=== PATIENT | female | born 1945 | race African-American/Black ===

== ENCOUNTER 2020-11-23 09:28 | Inpatient (IN) | payer BC ==
[~2020-11-23] VITALS: Ht 160 cm; Wt 84.8 kg
[2020-11-23 11:12] LABS: BASOPHILS % 0.5 % (0.0-2.0); HEMATOCRIT. 38.9 % (36.0-48.0); HEMOGLOBIN. 12.3 g/dL (12.0-16.0); LYMPHOCYTES % 18.7 % (20.0-50.0); MEAN CORPUSCULAR HEMOGLOBIN 22.6 pg (28.0-32.0); MEAN CORPUSCULAR VOLUME 71.6 fL (81.0-99.0); MEAN PLATELET VOLUME 9.1 fl (7.4-10.4); MONOCYTES % 8.1 % (2.0-8.0); NEUTROPHILS % 72.7 % (40.0-76.0); PLATELET 163 x1000/uL (130-400); RED BLOOD CELL COUNT 5.44 mill/uL (4.2-5.4); RED CELL DISTRIBUTION WIDTH 15.3 % (11.6-14.6)
[2020-11-23 11:19] LABS: CHLORIDE 101 mEq/L (98-107)
[2020-11-23] MEDS ORDERED: DEXAMETHASONE 10 MG/ML VIAL IV NR (19:30)
[2020-11-23] MEDS ORDERED: ENOXAPARIN 80MG/0.8ML SYR SUBCUT NR (19:30)
[2020-11-23] MEDS ORDERED: AZITHROMYCIN 500 MG in DEXT 5% WATER 250 ML IV SCH (20:00)
[2020-11-23] MEDS ORDERED: ONDANSETRON HCL 4MG/2ML INJ IV PRN (21:15)
[2020-11-23 21:46] LABS: BG BASE EXCESS 1.2 mmol/L (-2.0-2.0); BG CARBOXYHEMOGLOBIN 0.3 % (0.5-1.5); BG DEOXYHEMOGLOBIN 4.4 % (0.0-5.0); BG FRACTION INSPIRED OXYGEN 36; BG HCO3 ACT 25.3 mmol/L (22.0-26.0); BG METHEMOGLOBIN 0.2 % (0.0-1.5); BG OXYGEN SATURATION 95.6 % (92.0-98.5); BG OXYHEMOGLOBIN 95.1 % (94.0-97.0); BG PCO2 38.7 mmHg (35.0-45.0); BG PH 7.434 (7.350-7.450); BG SAMPLE SITE RIGHT RADIAL; BG TOTAL HEMOGLOBIN 12.8 g/dL (12.0-18.0); BG VENT MODE NASAL CANNULA
[2020-11-24 11:00] VITALS: BP 126/69
[2020-11-24 11:17] LABS: BG BASE EXCESS 2.4 mmol/L (-2.0-2.0); BG CARBOXYHEMOGLOBIN 0.1 % (0.5-1.5); BG DEOXYHEMOGLOBIN 4.2 % (0.0-5.0); BG FRACTION INSPIRED OXYGEN 44; BG METHEMOGLOBIN 0.3 % (0.0-1.5); BG OXYGEN SATURATION 95.8 % (92.0-98.5); BG OXYHEMOGLOBIN 95.4 % (94.0-97.0); BG PCO2 36.8 mmHg (35.0-45.0); BG PH 7.467 (7.350-7.450); BG PO2 75.1 mmHg (75.0-100.0); BG SAMPLE SITE RIGHT RADIAL; BG TOTAL HEMOGLOBIN 13.1 g/dL (12.0-18.0); BG VENT MODE NASAL CANNULA
[2020-11-24 12:00] VITALS: BP 126/86
[2020-11-24] MEDS ORDERED: GABA-532 PO (12:31)
[2020-11-24] MEDS ORDERED: LOSA1TAB34 MT (12:51)
[2020-11-24 16:00] VITALS: BP 130/70
[2020-11-24] MEDS ORDERED: DEXAMETHASONE 6MG TABLET PO NR (18:30)
[2020-11-24 20:00] VITALS: BP 144/78
[2020-11-24 20:49] LABS: BG BASE EXCESS 1.8 mmol/L (-2.0-2.0); BG CARBOXYHEMOGLOBIN 0.4 % (0.5-1.5); BG DEOXYHEMOGLOBIN 11.5 % (0.0-5.0); BG FRACTION INSPIRED OXYGEN 21; BG HCO3 ACT 25.8 mmol/L (22.0-26.0); BG METHEMOGLOBIN 0.3 % (0.0-1.5); BG OXYGEN SATURATION 88.4 % (92.0-98.5); BG OXYHEMOGLOBIN 87.8 % (94.0-97.0); BG PCO2 38.3 mmHg (35.0-45.0); BG PH 7.446 (7.350-7.450); BG SAMPLE SITE RIGHT RADIAL; BG TOTAL HEMOGLOBIN 14.4 g/dL (12.0-18.0); BG VENT MODE ROOM AIR
[2020-11-24] MEDS: GABAPENTIN 300MG CAPSULE PO SCH (21:09)
[2020-11-24] MEDS: ENOXAPARIN 40MG/0.4ML SYR SUBCUT SCH (21:10)
[2020-11-25] VITALS: BP 142/67
[2020-11-25 04:00] VITALS: BP 127/80
[2020-11-25] MEDS: GABAPENTIN 300MG CAPSULE PO SCH ×3 (05:03→20:49)
[2020-11-25] MEDS ORDERED: DEXAMETHASONE 6MG TABLET PO NR (11:15)
[2020-11-25] MEDS: DOCUSATE SODIUM SUGAR FREE 100MG/10ML UDC NG SCH (17:15)
[2020-11-25] MEDS: FAMOTIDINE 20MG/2ML VIAL IV SCH (17:16)
[2020-11-25] MEDS: ENOXAPARIN 40MG/0.4ML SYR SUBCUT SCH (20:48)
[2020-11-26] MEDS: GABAPENTIN 300MG CAPSULE PO SCH ×3 (07:27→21:07)
[2020-11-26] MEDS: DOCUSATE SODIUM SUGAR FREE 100MG/10ML UDC NG SCH (09:35)
[2020-11-26] MEDS: FAMOTIDINE 20MG/2ML VIAL IV SCH (09:35)
[2020-11-26 12:00] VITALS: BP 119/79
[2020-11-26] MEDS: ACETAMINOPHEN 325MG TABLET PO PRN (13:36)
[2020-11-26] MEDS ORDERED: ACETAMINOPHEN 325MG TABLET PO NR (15:15)
[2020-11-26 16:00] VITALS: BP 123/71
[2020-11-26 20:00] VITALS: BP 101/57
[2020-11-26] MEDS: ENOXAPARIN 40MG/0.4ML SYR SUBCUT SCH (21:07)
[2020-11-27] VITALS: BP 123/65
[2020-11-27 04:00] VITALS: BP 152/69
[2020-11-27] MEDS: GABAPENTIN 300MG CAPSULE PO SCH ×3 (06:42→21:41)
[2020-11-27 08:00] VITALS: BP 136/70
[2020-11-27] MEDS: DOCUSATE SODIUM SUGAR FREE 100MG/10ML UDC NG SCH (08:30)
[2020-11-27] MEDS: FAMOTIDINE 20MG/2ML VIAL IV SCH (08:31)
[2020-11-27] MEDS: ACETAMINOPHEN 325MG TABLET PO PRN (11:14)
[2020-11-27 12:00] VITALS: BP 164/79
[2020-11-27] MEDS: CLONIDINE 0.1MG TABLET PO PRN (13:20)
[2020-11-27 15:41] VITALS: BP 122/81
[2020-11-27 20:41] VITALS: BP 113/49
[2020-11-27] MEDS: ENOXAPARIN 40MG/0.4ML SYR SUBCUT SCH (21:41)
[2020-11-28] MEDS: GABAPENTIN 300MG CAPSULE PO SCH ×3 (06:12→22:26)
[2020-11-28 08:17] VITALS: BP 100/69
[2020-11-28] MEDS: DOCUSATE SODIUM SUGAR FREE 100MG/10ML UDC NG SCH ×2 (09:00→09:44)
[2020-11-28] MEDS: FAMOTIDINE 20MG/2ML VIAL IV SCH (09:44)
[2020-11-28 19:47] LABS: BASOPHILS % 0.7 % (0.0-2.0); EOSINOPHILS % 0.8 % (0.0-5.0); HEMATOCRIT. 36.9 % (36.0-48.0); HEMOGLOBIN. 11.6 g/dL (12.0-16.0); LYMPHOCYTES % 22.1 % (20.0-50.0); MEAN CORPUSCULAR HEMOGLOBIN 22.6 pg (28.0-32.0); MEAN CORPUSCULAR VOLUME 71.4 fL (81.0-99.0); MEAN PLATELET VOLUME 8.8 fl (7.4-10.4); MONOCYTES % 5.8 % (2.0-8.0); NEUTROPHILS % 70.6 % (40.0-76.0); PLATELET 300 x1000/uL (130-400); RED BLOOD CELL COUNT 5.16 mill/uL (4.2-5.4); RED CELL DISTRIBUTION WIDTH 14.9 % (11.6-14.6)
[2020-11-28 20:00] VITALS: BP 141/79
[2020-11-28 20:03] LABS: CHLORIDE 98 mEq/L (98-107)
[2020-11-28] MEDS ORDERED: CEFTRIAXONE 1 G PREMIX 50 ML IV SCH (21:15)
[2020-11-28] MEDS ORDERED: DEXAMETHASONE 6MG TABLET PO NR (21:30)
[2020-11-28] MEDS: ACETAMINOPHEN 325MG TABLET PO PRN (22:26)
[2020-11-28] MEDS: ENOXAPARIN 40MG/0.4ML SYR SUBCUT SCH (22:28)
[2020-11-29 00:20] VITALS: BP 119/72
[2020-11-29] MEDS: CEFTRIAXONE 1,000 MG in DEXTROSE 5% WATER 50 ML IV SCH ×2 (01:01→22:09)
[2020-11-29] MEDS: AZITHROMYCIN 500 MG in DEXT 5% WATER 250 ML IV SCH ×2 (02:14→22:10)
[2020-11-29 04:00] VITALS: BP 117/63
[2020-11-29] MEDS: GABAPENTIN 300MG CAPSULE PO SCH ×3 (06:46→22:10)
[2020-11-29] MEDS: ACETAMINOPHEN 325MG TABLET PO PRN (06:58)
[2020-11-29 08:00] VITALS: BP 114/63
[2020-11-29] MEDS: ZINC SULFATE 220 MG ( 50 ) CAPSULE PO SCH (09:32)
[2020-11-29] MEDS: FAMOTIDINE 20MG/2ML VIAL IV SCH (09:33)
[2020-11-29] MEDS: ASCORBIC ACID 500 MG TABLET PO SCH ×2 (09:33→21:00)
[2020-11-29] MEDS: DOCUSATE SODIUM SUGAR FREE 100MG/10ML UDC NG SCH (09:33)
[2020-11-29] MEDS: DEXAMETHASONE 6MG TABLET PO SCH (09:33)
[2020-11-29 11:53] VITALS: BP 121/74
[2020-11-29 15:03] VITALS: BP 123/63
[2020-11-29 20:00] VITALS: BP 125/72
[2020-11-29] MEDS: ENOXAPARIN 40MG/0.4ML SYR SUBCUT SCH (22:10)
[2020-11-30] VITALS: BP 129/80
[2020-11-30 04:00] VITALS: BP 123/64
[2020-11-30] MEDS: GABAPENTIN 300MG CAPSULE PO SCH ×3 (05:03→21:21)
[2020-11-30 08:00] VITALS: BP 140/65
[2020-11-30] MEDS: DOCUSATE SODIUM SUGAR FREE 100MG/10ML UDC NG SCH (09:00)
[2020-11-30] MEDS: DEXAMETHASONE 6MG TABLET PO SCH (09:21)
[2020-11-30] MEDS: FAMOTIDINE 20MG/2ML VIAL IV SCH (09:21)
[2020-11-30] MEDS: ASCORBIC ACID 500 MG TABLET PO SCH ×2 (09:21→21:21)
[2020-11-30] MEDS: ZINC SULFATE 220 MG ( 50 ) CAPSULE PO SCH (09:22)
[2020-11-30] MEDS: ACETAMINOPHEN 325MG TABLET PO PRN (15:39)
[2020-11-30 16:00] VITALS: BP 102/54
[2020-11-30 20:00] VITALS: BP 139/80
[2020-11-30] MEDS: CEFTRIAXONE 1,000 MG in DEXTROSE 5% WATER 50 ML IV SCH (20:12)
[2020-11-30] MEDS: ENOXAPARIN 40MG/0.4ML SYR SUBCUT SCH (21:21)
[2020-11-30] MEDS: AZITHROMYCIN 500 MG in DEXT 5% WATER 250 ML IV SCH (21:21)
[2020-12-01] VITALS: BP 128/60
[2020-12-01 04:00] VITALS: BP 141/75
[2020-12-01] MEDS: GABAPENTIN 300MG CAPSULE PO SCH ×3 (05:44→21:17)
[2020-12-01 08:00] VITALS: BP 132/70
[2020-12-01] MEDS: DOCUSATE SODIUM SUGAR FREE 100MG/10ML UDC NG SCH (09:00)
[2020-12-01] MEDS: ZINC SULFATE 220 MG ( 50 ) CAPSULE PO SCH (09:02)
[2020-12-01] MEDS: DEXAMETHASONE 6MG TABLET PO SCH (09:02)
[2020-12-01] MEDS: ASCORBIC ACID 500 MG TABLET PO SCH ×2 (09:03→20:18)
[2020-12-01] MEDS: FAMOTIDINE 20MG/2ML VIAL IV SCH (09:03)
[2020-12-01 12:00] VITALS: BP 131/67
[2020-12-01] MEDS: CEFTRIAXONE 1,000 MG in DEXTROSE 5% WATER 50 ML IV SCH (20:18)
[2020-12-01] MEDS: ENOXAPARIN 40MG/0.4ML SYR SUBCUT SCH (20:19)
[2020-12-01 20:39] LABS: BASOPHILS % 0.8 % (0.0-2.0); EOSINOPHILS % 0.2 % (0.0-5.0); HEMATOCRIT. 34.3 % (36.0-48.0); HEMOGLOBIN. 10.9 g/dL (12.0-16.0); LYMPHOCYTES % 12.4 % (20.0-50.0); MEAN CORPUSCULAR HEMOGLOBIN 22.6 pg (28.0-32.0); MEAN CORPUSCULAR VOLUME 70.7 fL (81.0-99.0); MEAN PLATELET VOLUME 8.5 fl (7.4-10.4); MONOCYTES % 5.7 % (2.0-8.0); NEUTROPHILS % 80.9 % (40.0-76.0); PLATELET 239 x1000/uL (130-400); RED BLOOD CELL COUNT 4.84 mill/uL (4.2-5.4); RED CELL DISTRIBUTION WIDTH 14.8 % (11.6-14.6)
[2020-12-01 20:50] LABS: CHLORIDE 101 mEq/L (98-107)
[2020-12-01] MEDS: AZITHROMYCIN 500 MG in DEXT 5% WATER 250 ML IV SCH (21:17)
[2020-12-01 21:50] VITALS: BP 158/77
[2020-12-02] VITALS: BP 148/60
[2020-12-02 04:00] VITALS: BP 132/84
[2020-12-02] MEDS: GABAPENTIN 300MG CAPSULE PO SCH ×3 (05:20→21:30)
[2020-12-02 08:00] VITALS: BP_SYST 142; BP_SYST 159; BP_DIAS 74; BP_DIAS 80
[2020-12-02] MEDS: DOCUSATE SODIUM SUGAR FREE 100MG/10ML UDC NG SCH (09:00)
[2020-12-02] MEDS: DEXAMETHASONE 6MG TABLET PO SCH (09:10)
[2020-12-02] MEDS: ZINC SULFATE 220 MG ( 50 ) CAPSULE PO SCH (09:10)
[2020-12-02] MEDS: ASCORBIC ACID 500 MG TABLET PO SCH ×2 (09:10→20:21)
[2020-12-02] MEDS: FAMOTIDINE 20MG/2ML VIAL IV SCH (09:11)
[2020-12-02 12:00] VITALS: BP 132/66
[2020-12-02 16:00] VITALS: BP 122/70
[2020-12-02 20:00] VITALS: BP 130/69
[2020-12-02] MEDS: CEFTRIAXONE 1,000 MG in DEXTROSE 5% WATER 50 ML IV SCH (20:21)
[2020-12-02] MEDS: ENOXAPARIN 40MG/0.4ML SYR SUBCUT SCH (20:21)
[2020-12-02] MEDS ORDERED: AZITHROMYCIN 500 MG TABLET PO SCH (21:00)
[2020-12-03] VITALS: BP 120/63
[2020-12-03 04:00] VITALS: BP 148/78
[2020-12-03] MEDS: GABAPENTIN 300MG CAPSULE PO SCH ×2 (05:29→23:53)
[2020-12-03 08:00] VITALS: BP 133/69
[2020-12-03 08:52] LABS: CHLORIDE 101 mEq/L (98-107)
[2020-12-03 08:58] LABS: BASOPHILS % 0.3 % (0.0-2.0); EOSINOPHILS % 0.2 % (0.0-5.0); HEMATOCRIT. 35.3 % (36.0-48.0); HEMOGLOBIN. 11.2 g/dL (12.0-16.0); LYMPHOCYTES % 20.7 % (20.0-50.0); MEAN CORPUSCULAR HEMOGLOBIN 22.5 pg (28.0-32.0); MEAN CORPUSCULAR VOLUME 70.9 fL (81.0-99.0); MEAN PLATELET VOLUME 8.9 fl (7.4-10.4); MONOCYTES % 6.5 % (2.0-8.0); NEUTROPHILS % 72.3 % (40.0-76.0); PLATELET 241 x1000/uL (130-400); RED BLOOD CELL COUNT 4.98 mill/uL (4.2-5.4)
[2020-12-03] MEDS: DOCUSATE SODIUM SUGAR FREE 100MG/10ML UDC NG SCH (09:00)
[2020-12-03] MEDS: FAMOTIDINE 20MG/2ML VIAL IV SCH (09:21)
[2020-12-03] MEDS: ASCORBIC ACID 500 MG TABLET PO SCH ×2 (09:21→23:53)
[2020-12-03] MEDS: DEXAMETHASONE 6MG TABLET PO SCH (09:22)
[2020-12-03] MEDS: ZINC SULFATE 220 MG ( 50 ) CAPSULE PO SCH (09:22)
[2020-12-03 12:00] VITALS: BP 137/79
[2020-12-03 16:00] VITALS: BP 116/66
[2020-12-03 20:00] VITALS: BP 128/72
[2020-12-03] MEDS: CEFTRIAXONE 1,000 MG in DEXTROSE 5% WATER 50 ML IV SCH (23:54)
[2020-12-03] MEDS: ENOXAPARIN 40MG/0.4ML SYR SUBCUT SCH (23:54)
[2020-12-04] VITALS: BP 163/90
[2020-12-04] MEDS: CLONIDINE 0.1MG TABLET PO PRN (01:10)
[2020-12-04 04:00] VITALS: BP 119/62
[2020-12-04] MEDS: GABAPENTIN 300MG CAPSULE PO SCH ×3 (05:36→21:21)
[2020-12-04 08:00] VITALS: BP 122/58
[2020-12-04] MEDS: ZINC SULFATE 220 MG ( 50 ) CAPSULE PO SCH (09:52)
[2020-12-04] MEDS: FAMOTIDINE 20MG/2ML VIAL IV SCH (09:52)
[2020-12-04] MEDS: DEXAMETHASONE 6MG TABLET PO SCH (09:52)
[2020-12-04] MEDS: DOCUSATE SODIUM SUGAR FREE 100MG/10ML UDC NG SCH (09:53)
[2020-12-04 12:00] VITALS: BP 122/65
[2020-12-04] MEDS: ASCORBIC ACID 500 MG TABLET PO SCH ×2 (15:25→21:18)
[2020-12-04 16:00] VITALS: BP 114/63
[2020-12-04 20:00] VITALS: BP 112/64
[2020-12-04] MEDS: ENOXAPARIN 40MG/0.4ML SYR SUBCUT SCH (21:18)
[2020-12-05] VITALS: BP 116/70
[2020-12-05 04:00] VITALS: BP 136/77
[2020-12-05] MEDS: GABAPENTIN 300MG CAPSULE PO SCH ×3 (05:11→20:39)
[2020-12-05 08:00] VITALS: BP 135/76
[2020-12-05] MEDS: DOCUSATE SODIUM SUGAR FREE 100MG/10ML UDC NG SCH (09:00)
[2020-12-05] MEDS: FAMOTIDINE 20MG/2ML VIAL IV SCH (09:35)
[2020-12-05] MEDS: ZINC SULFATE 220 MG ( 50 ) CAPSULE PO SCH (09:35)
[2020-12-05] MEDS: ASCORBIC ACID 500 MG TABLET PO SCH ×2 (09:35→20:39)
[2020-12-05] MEDS: DEXAMETHASONE 6MG TABLET PO SCH (09:35)
[2020-12-05 12:00] VITALS: BP 125/73
[2020-12-05 16:00] VITALS: BP 123/76
[2020-12-05] MEDS ORDERED: LOPERAMIDE HCL 2MG CAPSULE PO PRN (16:30)
[2020-12-05 20:00] VITALS: BP 164/72
[2020-12-05] MEDS: ENOXAPARIN 40MG/0.4ML SYR SUBCUT SCH (20:40)
[2020-12-06] VITALS (7 sets, daily range): BP systolic 109–146; BP diastolic 57–79
[2020-12-06] MEDS: GABAPENTIN 300MG CAPSULE PO SCH ×3 (05:33→21:03)
[2020-12-06] MEDS: DOCUSATE SODIUM SUGAR FREE 100MG/10ML UDC NG SCH (09:00)
[2020-12-06] MEDS: DEXAMETHASONE 6MG TABLET PO SCH (09:03)
[2020-12-06] MEDS: FAMOTIDINE 20MG/2ML VIAL IV SCH (09:03)
[2020-12-06] MEDS: ZINC SULFATE 220 MG ( 50 ) CAPSULE PO SCH (09:03)
[2020-12-06] MEDS: ASCORBIC ACID 500 MG TABLET PO SCH ×2 (09:03→21:05)
[2020-12-06] MEDS: LACTOBACILLUS GG CAPSULE PO SCH (09:14)
[2020-12-06] MEDS: ENOXAPARIN 40MG/0.4ML SYR SUBCUT SCH (21:03)
[2020-12-06] MEDS ORDERED: IVERMECTIN 3 MG TABLET PO NR (23:00)
[2020-12-07] VITALS: BP 118/70
[2020-12-07 04:00] VITALS: BP 119/69
[2020-12-07] MEDS: GABAPENTIN 300MG CAPSULE PO SCH ×3 (06:24→20:46)
[2020-12-07 08:00] VITALS: BP 160/68
[2020-12-07] MEDS: DEXAMETHASONE 6MG TABLET PO SCH (08:50)
[2020-12-07] MEDS: LACTOBACILLUS GG CAPSULE PO SCH (08:50)
[2020-12-07] MEDS: FAMOTIDINE 20MG/2ML VIAL IV SCH (08:50)
[2020-12-07] MEDS: DOCUSATE SODIUM SUGAR FREE 100MG/10ML UDC NG SCH (08:50)
[2020-12-07] MEDS: ASCORBIC ACID 500 MG TABLET PO SCH ×2 (08:50→20:47)
[2020-12-07] MEDS: ZINC SULFATE 220 MG ( 50 ) CAPSULE PO SCH (08:50)
[2020-12-07 12:00] VITALS: BP 139/66
[2020-12-07 16:00] VITALS: BP 120/62
[2020-12-07] MEDS: ENOXAPARIN 40MG/0.4ML SYR SUBCUT SCH (20:48)
[2020-12-08] MEDS: GABAPENTIN 300MG CAPSULE PO SCH ×3 (06:05→22:30)
[2020-12-08 08:00] VITALS: BP 133/53
[2020-12-08] MEDS: DOCUSATE SODIUM SUGAR FREE 100MG/10ML UDC NG SCH (09:23)
[2020-12-08] MEDS: FAMOTIDINE 20MG TABLET PO SCH (09:24)
[2020-12-08] MEDS: ZINC SULFATE 220 MG ( 50 ) CAPSULE PO SCH (09:24)
[2020-12-08] MEDS: LACTOBACILLUS GG CAPSULE PO SCH (09:24)
[2020-12-08] MEDS: ASCORBIC ACID 500 MG TABLET PO SCH ×2 (09:24→21:00)
[2020-12-08 12:01] VITALS: BP 117/63
[2020-12-08 16:02] VITALS: BP 111/77
[2020-12-08 20:00] VITALS: BP 106/57
[2020-12-08] MEDS: ENOXAPARIN 40MG/0.4ML SYR SUBCUT SCH (22:30)
[2020-12-08] MEDS ORDERED: IVERMECTIN 3 MG TABLET PO NR (22:30)
[2020-12-09] MEDS: GABAPENTIN 300MG CAPSULE PO SCH ×3 (05:50→20:38)
[2020-12-09 08:00] VITALS: BP 110/64
[2020-12-09] MEDS: LACTOBACILLUS GG CAPSULE PO SCH (09:13)
[2020-12-09] MEDS: ZINC SULFATE 220 MG ( 50 ) CAPSULE PO SCH (09:13)
[2020-12-09] MEDS: ASCORBIC ACID 500 MG TABLET PO SCH ×2 (09:14→20:38)
[2020-12-09] MEDS: DOCUSATE SODIUM SUGAR FREE 100MG/10ML UDC NG SCH (09:14)
[2020-12-09] MEDS: FAMOTIDINE 20MG TABLET PO SCH (09:16)
[2020-12-09 14:47] LABS: BG BASE EXCESS 1.6 mmol/L (-2.0-2.0); BG CARBOXYHEMOGLOBIN 0.1 % (0.5-1.5); BG DEOXYHEMOGLOBIN 8.8 % (0.0-5.0); BG FRACTION INSPIRED OXYGEN 99.9; BG HCO3 ACT 26.4 mmol/L (22.0-26.0); BG OXYGEN SATURATION 91.2 % (92.0-98.5); BG OXYHEMOGLOBIN 91.1 % (94.0-97.0); BG PCO2 42.2 mmHg (35.0-45.0); BG PH 7.414 (7.350-7.450); BG SAMPLE SITE RIGHT BRACHIAL; BG TOTAL HEMOGLOBIN 13.2 g/dL (12.0-18.0); BG VENT MODE MASK - NRB
[2020-12-09 16:00] VITALS: BP 125/67
[2020-12-09 20:00] VITALS: BP 133/63
[2020-12-09] MEDS: ENOXAPARIN 40MG/0.4ML SYR SUBCUT SCH (20:37)
[2020-12-10] VITALS (7 sets, daily range): BP systolic 93–130; BP diastolic 41–80
[2020-12-10] MEDS: GABAPENTIN 300MG CAPSULE PO SCH ×3 (06:57→21:38)
[2020-12-10] MEDS: LACTOBACILLUS GG CAPSULE PO SCH (09:02)
[2020-12-10] MEDS: ZINC SULFATE 220 MG ( 50 ) CAPSULE PO SCH (09:03)
[2020-12-10] MEDS: FAMOTIDINE 20MG TABLET PO SCH (09:03)
[2020-12-10] MEDS: ASCORBIC ACID 500 MG TABLET PO SCH ×2 (09:03→21:38)
[2020-12-10] MEDS: DOCUSATE SODIUM SUGAR FREE 100MG/10ML UDC NG SCH (09:03)
[2020-12-10] MEDS: ENOXAPARIN 40MG/0.4ML SYR SUBCUT SCH (21:39)
[2020-12-11] VITALS: BP 116/80
[2020-12-11 04:00] VITALS: BP 110/55
[2020-12-11] MEDS: GABAPENTIN 300MG CAPSULE PO SCH ×3 (05:03→21:02)
[2020-12-11 08:00] VITALS: BP 118/47
[2020-12-11] MEDS: DOCUSATE SODIUM SUGAR FREE 100MG/10ML UDC NG SCH (09:00)
[2020-12-11] MEDS: LACTOBACILLUS GG CAPSULE PO SCH (09:06)
[2020-12-11] MEDS: FAMOTIDINE 20MG TABLET PO SCH (09:06)
[2020-12-11] MEDS: ZINC SULFATE 220 MG ( 50 ) CAPSULE PO SCH (09:06)
[2020-12-11] MEDS: ACETAMINOPHEN 325MG TABLET PO PRN (11:36)
[2020-12-11] MEDS: ASCORBIC ACID 500 MG TABLET PO SCH ×2 (11:36→20:58)
[2020-12-11 12:15] LABS: BASOPHILS % 0.8 % (0.0-2.0); EOSINOPHILS % 1.2 % (0.0-5.0); HEMATOCRIT. 35.8 % (36.0-48.0); HEMOGLOBIN. 11.2 g/dL (12.0-16.0); LYMPHOCYTES % 13.9 % (20.0-50.0); MEAN CORPUSCULAR HEMOGLOBIN 22.2 pg (28.0-32.0); MEAN CORPUSCULAR VOLUME 71.1 fL (81.0-99.0); MEAN PLATELET VOLUME 8.7 fl (7.4-10.4); MONOCYTES % 5.6 % (2.0-8.0); NEUTROPHILS % 78.5 % (40.0-76.0); PLATELET 237 x1000/uL (130-400); RED BLOOD CELL COUNT 5.04 mill/uL (4.2-5.4); RED CELL DISTRIBUTION WIDTH 14.6 % (11.6-14.6)
[2020-12-11 12:35] LABS: CHLORIDE 99 mEq/L (98-107)
[2020-12-11 16:00] VITALS: BP 119/58
[2020-12-11] MEDS: CEFEPIME 1,000 MG in DEXTROSE 5% WATER 50 ML IV SCH (16:27)
[2020-12-11] MEDS: ENOXAPARIN 40MG/0.4ML SYR SUBCUT SCH (20:58)
[2020-12-12 04:00] VITALS: BP 135/72
[2020-12-12] MEDS: CEFEPIME 1,000 MG in DEXTROSE 5% WATER 50 ML IV SCH (04:07)
[2020-12-12] MEDS: GABAPENTIN 300MG CAPSULE PO SCH ×3 (05:39→21:57)
[2020-12-12] MEDS: ACETAMINOPHEN 325MG TABLET PO PRN ×2 (06:03→21:57)
[2020-12-12] MEDS: FAMOTIDINE 20MG TABLET PO SCH (09:00)
[2020-12-12] MEDS: ZINC SULFATE 220 MG ( 50 ) CAPSULE PO SCH (09:00)
[2020-12-12] MEDS: LACTOBACILLUS GG CAPSULE PO SCH (09:00)
[2020-12-12] MEDS: DOCUSATE SODIUM SUGAR FREE 100MG/10ML UDC NG SCH (09:00)
[2020-12-12] MEDS: ASCORBIC ACID 500 MG TABLET PO SCH ×2 (09:00→21:56)
[2020-12-12] MEDS: CEFEPIME 2,000 MG in DEXT 5% WATER 100 ML IV SCH (15:00)
[2020-12-12] MEDS: ENOXAPARIN 40MG/0.4ML SYR SUBCUT SCH (21:56)
[2020-12-13 00:51] VITALS: BP 98/61
[2020-12-13] MEDS: CEFEPIME 2,000 MG in DEXT 5% WATER 100 ML IV SCH ×2 (02:46→14:56)
[2020-12-13 04:00] VITALS: BP 119/55
[2020-12-13] MEDS: GABAPENTIN 300MG CAPSULE PO SCH ×3 (06:03→22:00)
[2020-12-13 08:00] VITALS: BP 152/78
[2020-12-13] MEDS: DOCUSATE SODIUM SUGAR FREE 100MG/10ML UDC NG SCH (09:03)
[2020-12-13] MEDS: ZINC SULFATE 220 MG ( 50 ) CAPSULE PO SCH (09:04)
[2020-12-13] MEDS: ASCORBIC ACID 500 MG TABLET PO SCH ×2 (09:04→22:00)
[2020-12-13] MEDS: FAMOTIDINE 20MG TABLET PO SCH (09:04)
[2020-12-13] MEDS: LACTOBACILLUS GG CAPSULE PO SCH (09:04)
[2020-12-13] MEDS ORDERED: FUROSEMIDE 40MG/4ML VIAL IVP SCH (13:00)
[2020-12-13] MEDS ORDERED: IVERMECTIN 3 MG TABLET PO NR (17:00)
[2020-12-13 20:00] VITALS: BP 129/78
[2020-12-13] MEDS: ENOXAPARIN 40MG/0.4ML SYR SUBCUT SCH (22:00)
[2020-12-14] VITALS: BP 118/73
[2020-12-14] MEDS: CEFEPIME 2,000 MG in DEXT 5% WATER 100 ML IV SCH ×2 (02:08→15:21)
[2020-12-14 04:00] VITALS: BP 129/72
[2020-12-14] MEDS: GABAPENTIN 300MG CAPSULE PO SCH ×3 (05:41→22:23)
[2020-12-14] MEDS: BENZONATATE 100MG CAPSULE PO PRN ×2 (05:47→15:20)
[2020-12-14 06:45] LABS: BASOPHILS % 0.7 % (0.0-2.0); HEMATOCRIT. 35.9 % (36.0-48.0); HEMOGLOBIN. 11.2 g/dL (12.0-16.0); LYMPHOCYTES % 15.9 % (20.0-50.0); MEAN CORPUSCULAR HEMOGLOBIN 22.4 pg (28.0-32.0); MEAN CORPUSCULAR VOLUME 71.9 fL (81.0-99.0); MONOCYTES % 6.5 % (2.0-8.0); NEUTROPHILS % 75.9 % (40.0-76.0); PLATELET 222 x1000/uL (130-400); RED BLOOD CELL COUNT 4.99 mill/uL (4.2-5.4); RED CELL DISTRIBUTION WIDTH 14.5 % (11.6-14.6)
[2020-12-14 07:06] LABS: CHLORIDE 99 mEq/L (98-107)
[2020-12-14 08:00] VITALS: BP 141/74
[2020-12-14] MEDS: FAMOTIDINE 20MG TABLET PO SCH (08:54)
[2020-12-14] MEDS: LACTOBACILLUS GG CAPSULE PO SCH (08:54)
[2020-12-14] MEDS: DOCUSATE SODIUM SUGAR FREE 100MG/10ML UDC NG SCH ×3 (08:54→13:16)
[2020-12-14] MEDS: ASCORBIC ACID 500 MG TABLET PO SCH ×2 (08:54→22:23)
[2020-12-14] MEDS: ZINC SULFATE 220 MG ( 50 ) CAPSULE PO SCH (08:54)
[2020-12-14] MEDS: ACETAMINOPHEN 325MG TABLET PO PRN (10:09)
[2020-12-14 11:41] VITALS: BP_SYST 111; BP_SYST 141; BP_DIAS 67; BP_DIAS 74
[2020-12-14 14:16] LABS: BG BASE EXCESS 4.4 mmol/L (-2.0-2.0); BG CARBOXYHEMOGLOBIN 0.5 % (0.5-1.5); BG DEOXYHEMOGLOBIN 3.8 % (0.0-5.0); BG FRACTION INSPIRED OXYGEN 99.9; BG HCO3 ACT 28.7 mmol/L (22.0-26.0); BG METHEMOGLOBIN 0.2 % (0.0-1.5); BG OXYGEN SATURATION 96.2 % (92.0-98.5); BG OXYHEMOGLOBIN 95.5 % (94.0-97.0); BG PCO2 41.4 mmHg (35.0-45.0); BG PH 7.458 (7.350-7.450); BG SAMPLE SITE RIGHT BRACHIAL; BG TOTAL HEMOGLOBIN 12.2 g/dL (12.0-18.0); BG VENT MODE MASK - NRB
[2020-12-14 16:00] VITALS: BP 118/72
[2020-12-14] MEDS: METHYLPREDNISOLONE SOD SUCC 40 MG/ML VIAL IV SCH (17:50)
[2020-12-14 20:00] VITALS: BP 137/75
[2020-12-14] MEDS: ENOXAPARIN 40MG/0.4ML SYR SUBCUT SCH (22:24)
[2020-12-15] VITALS: BP 132/81
[2020-12-15] MEDS: CEFEPIME 2,000 MG in DEXT 5% WATER 100 ML IV SCH ×2 (02:50→15:14)
[2020-12-15 04:00] VITALS: BP 124/66
[2020-12-15] MEDS: GABAPENTIN 300MG CAPSULE PO SCH ×3 (05:41→21:31)
[2020-12-15 08:00] VITALS: BP 136/73
[2020-12-15] MEDS: FAMOTIDINE 20MG TABLET PO SCH (08:53)
[2020-12-15] MEDS: ZINC SULFATE 220 MG ( 50 ) CAPSULE PO SCH (08:53)
[2020-12-15] MEDS: DOCUSATE SODIUM SUGAR FREE 100MG/10ML UDC NG SCH (08:53)
[2020-12-15] MEDS: ASCORBIC ACID 500 MG TABLET PO SCH ×2 (08:54→21:31)
[2020-12-15] MEDS: METHYLPREDNISOLONE SOD SUCC 40 MG/ML VIAL IV SCH ×2 (08:54→16:38)
[2020-12-15] MEDS: LACTOBACILLUS GG CAPSULE PO SCH (08:54)
[2020-12-15 12:00] VITALS: BP 136/73
[2020-12-15 16:00] VITALS: BP 110/57
[2020-12-15] MEDS ORDERED: IVERMECTIN 3 MG TABLET PO SCH (16:00)
[2020-12-15 20:00] VITALS: BP 120/67
[2020-12-15] MEDS: ENOXAPARIN 40MG/0.4ML SYR SUBCUT SCH (21:31)
[2020-12-16] VITALS: BP 120/67
[2020-12-16] MEDS: CEFEPIME 2,000 MG in DEXT 5% WATER 100 ML IV SCH (02:54)
[2020-12-16 04:00] VITALS: BP 137/80
[2020-12-16] MEDS: GABAPENTIN 300MG CAPSULE PO SCH ×3 (05:49→21:05)
[2020-12-16 08:00] VITALS: BP 111/51
[2020-12-16] MEDS: METHYLPREDNISOLONE SOD SUCC 40 MG/ML VIAL IV SCH ×2 (08:47→17:35)
[2020-12-16] MEDS: LACTOBACILLUS GG CAPSULE PO SCH (08:47)
[2020-12-16] MEDS: DOCUSATE SODIUM SUGAR FREE 100MG/10ML UDC NG SCH (08:47)
[2020-12-16] MEDS: FAMOTIDINE 20MG TABLET PO SCH (08:47)
[2020-12-16] MEDS: ZINC SULFATE 220 MG ( 50 ) CAPSULE PO SCH (08:47)
[2020-12-16] MEDS: ASCORBIC ACID 500 MG TABLET PO SCH ×2 (08:50→21:05)
[2020-12-16 20:00] VITALS: BP 121/57
[2020-12-16] MEDS: ENOXAPARIN 40MG/0.4ML SYR SUBCUT SCH (21:05)
[2020-12-17 00:30] VITALS: BP 111/64
[2020-12-17 04:00] VITALS: BP 109/62
[2020-12-17] MEDS: GABAPENTIN 300MG CAPSULE PO SCH ×3 (06:13→21:42)
[2020-12-17 08:00] VITALS: BP 122/51
[2020-12-17] MEDS: ASCORBIC ACID 500 MG TABLET PO SCH ×2 (08:47→21:32)
[2020-12-17] MEDS: LACTOBACILLUS GG CAPSULE PO SCH (08:47)
[2020-12-17] MEDS: ZINC SULFATE 220 MG ( 50 ) CAPSULE PO SCH (08:48)
[2020-12-17] MEDS: DOCUSATE SODIUM SUGAR FREE 100MG/10ML UDC NG SCH (08:48)
[2020-12-17] MEDS: METHYLPREDNISOLONE SOD SUCC 40 MG/ML VIAL IV SCH ×2 (08:48→16:45)
[2020-12-17] MEDS: FAMOTIDINE 20MG TABLET PO SCH (08:48)
[2020-12-17] MEDS: BENZONATATE 100MG CAPSULE PO PRN (09:29)
[2020-12-17 12:00] VITALS: BP 112/51
[2020-12-17 16:00] VITALS: BP 111/59
[2020-12-17 20:00] VITALS: BP 120/54
[2020-12-17] MEDS: ENOXAPARIN 40MG/0.4ML SYR SUBCUT SCH (21:36)
[2020-12-18] VITALS: BP 121/68
[2020-12-18 04:00] VITALS: BP 116/67
[2020-12-18] MEDS: GABAPENTIN 300MG CAPSULE PO SCH ×3 (06:16→20:28)
[2020-12-18 08:00] VITALS: BP 112/76
[2020-12-18] MEDS: FAMOTIDINE 20MG TABLET PO SCH (09:00)
[2020-12-18] MEDS: ASCORBIC ACID 500 MG TABLET PO SCH ×2 (09:30→20:28)
[2020-12-18] MEDS: METHYLPREDNISOLONE SOD SUCC 40 MG/ML VIAL IV SCH ×2 (09:30→17:51)
[2020-12-18] MEDS: ZINC SULFATE 220 MG ( 50 ) CAPSULE PO SCH (09:30)
[2020-12-18] MEDS: DOCUSATE SODIUM SUGAR FREE 100MG/10ML UDC NG SCH (09:30)
[2020-12-18] MEDS: LACTOBACILLUS GG CAPSULE PO SCH (09:31)
[2020-12-18 12:00] VITALS: BP 116/67
[2020-12-18 16:00] VITALS: BP_SYST 175
[2020-12-18 20:00] VITALS: BP 125/64
[2020-12-18] MEDS: ENOXAPARIN 40MG/0.4ML SYR SUBCUT SCH (20:27)
[2020-12-18] MEDS: COLCHICINE 0.6MG TABLET PO SCH (22:47)
[2020-12-19] VITALS: BP 129/67
[2020-12-19 04:00] VITALS: BP 113/64
[2020-12-19] MEDS: GABAPENTIN 300MG CAPSULE PO SCH ×3 (05:11→21:51)
[2020-12-19 08:00] VITALS: BP 134/62
[2020-12-19] MEDS: COLCHICINE 0.6MG TABLET PO SCH (09:03)
[2020-12-19] MEDS: LACTOBACILLUS GG CAPSULE PO SCH (09:03)
[2020-12-19] MEDS: DOCUSATE SODIUM SUGAR FREE 100MG/10ML UDC NG SCH (09:03)
[2020-12-19] MEDS: ZINC SULFATE 220 MG ( 50 ) CAPSULE PO SCH (09:03)
[2020-12-19] MEDS: FAMOTIDINE 20MG TABLET PO SCH (09:03)
[2020-12-19] MEDS: ASCORBIC ACID 500 MG TABLET PO SCH ×2 (09:10→21:52)
[2020-12-19] MEDS ORDERED: METHYLPREDNISOLONE SOD SUCC 125 MG/2 ML VIAL IV SCH (09:15)
[2020-12-19 12:00] VITALS: BP 125/62
[2020-12-19 16:00] VITALS: BP 112/56
[2020-12-19 20:00] VITALS: BP 124/65
[2020-12-19] MEDS: ENOXAPARIN 40MG/0.4ML SYR SUBCUT SCH (21:51)
[2020-12-20] VITALS: BP 126/69
[2020-12-20] MEDS: ACETAMINOPHEN 325MG TABLET PO PRN (03:40)
[2020-12-20 04:00] VITALS: BP 122/79
[2020-12-20] MEDS: GABAPENTIN 300MG CAPSULE PO SCH ×3 (06:17→22:08)
[2020-12-20 08:00] VITALS: BP 144/79
[2020-12-20] MEDS: FAMOTIDINE 20MG TABLET PO SCH (09:05)
[2020-12-20] MEDS: COLCHICINE 0.6MG TABLET PO SCH (09:05)
[2020-12-20] MEDS: ZINC SULFATE 220 MG ( 50 ) CAPSULE PO SCH (09:05)
[2020-12-20] MEDS: METHYLPREDNISOLONE SOD SUCC 40 MG/ML VIAL IV SCH ×2 (09:05→22:06)
[2020-12-20] MEDS: LACTOBACILLUS GG CAPSULE PO SCH (09:06)
[2020-12-20] MEDS: DOCUSATE SODIUM SUGAR FREE 100MG/10ML UDC NG SCH (09:07)
[2020-12-20] MEDS: ASCORBIC ACID 500 MG TABLET PO SCH ×2 (09:32→22:06)
[2020-12-20 20:00] VITALS: BP 139/73
[2020-12-20] MEDS: ENOXAPARIN 40MG/0.4ML SYR SUBCUT SCH (22:05)
[2020-12-21] VITALS: BP 136/80
[2020-12-21 04:00] VITALS: BP 122/69
[2020-12-21] MEDS: GABAPENTIN 300MG CAPSULE PO SCH ×2 (05:59→14:00)
[2020-12-21 06:54] LABS: CHLORIDE 101 mEq/L (98-107)
[2020-12-21 07:02] LABS: BASOPHILS % 0.9 % (0.0-2.0); EOSINOPHILS % 0.2 % (0.0-5.0); HEMATOCRIT. 33.3 % (36.0-48.0); HEMOGLOBIN. 10.5 g/dL (12.0-16.0); LYMPHOCYTES % 18.5 % (20.0-50.0); MEAN CORPUSCULAR HEMOGLOBIN 22.5 pg (28.0-32.0); MEAN CORPUSCULAR VOLUME 71.7 fL (81.0-99.0); MEAN PLATELET VOLUME 9.1 fl (7.4-10.4); MONOCYTES % 3.2 % (2.0-8.0); NEUTROPHILS % 77.2 % (40.0-76.0); PLATELET 248 x1000/uL (130-400); RED BLOOD CELL COUNT 4.65 mill/uL (4.2-5.4); RED CELL DISTRIBUTION WIDTH 14.7 % (11.6-14.6)
[2020-12-21 08:00] VITALS: BP 119/74
[2020-12-21] MEDS: DOCUSATE SODIUM SUGAR FREE 100MG/10ML UDC NG SCH (09:57)
[2020-12-21] MEDS: ZINC SULFATE 220 MG ( 50 ) CAPSULE PO SCH (09:57)
[2020-12-21] MEDS: METHYLPREDNISOLONE SOD SUCC 40 MG/ML VIAL IV SCH (09:58)
[2020-12-21] MEDS: FAMOTIDINE 20MG TABLET PO SCH (13:36)
[2020-12-21] MEDS: LACTOBACILLUS GG CAPSULE PO SCH (13:36)
[2020-12-21] MEDS: ASCORBIC ACID 500 MG TABLET PO SCH (13:36)
[2020-12-21] MEDS: COLCHICINE 0.6MG TABLET PO SCH (13:36)
[2020-12-21] MEDS: ACETAMINOPHEN 325MG TABLET PO PRN (18:18)
[2020-12-21 20:00] VITALS: BP 128/78
[2020-12-22] VITALS: BP 145/79
[2020-12-22] MEDS: ASCORBIC ACID 500 MG TABLET PO SCH ×3 (00:14→21:58)
[2020-12-22] MEDS: GABAPENTIN 300MG CAPSULE PO SCH ×4 (00:14→22:46)
[2020-12-22] MEDS: METHYLPREDNISOLONE SOD SUCC 40 MG/ML VIAL IV SCH ×3 (00:16→22:31)
[2020-12-22] MEDS: ENOXAPARIN 40MG/0.4ML SYR SUBCUT SCH ×2 (00:16→21:57)
[2020-12-22 04:00] VITALS: BP 130/76
[2020-12-22] MEDS: LACTOBACILLUS GG CAPSULE PO SCH (07:55)
[2020-12-22] MEDS: COLCHICINE 0.6MG TABLET PO SCH (07:55)
[2020-12-22] MEDS: ZINC SULFATE 220 MG ( 50 ) CAPSULE PO SCH (07:55)
[2020-12-22] MEDS: FAMOTIDINE 20MG TABLET PO SCH (07:55)
[2020-12-22] MEDS: DOCUSATE SODIUM SUGAR FREE 100MG/10ML UDC NG SCH (07:56)
[2020-12-22 08:43] VITALS: BP 144/78
[2020-12-22] MEDS ORDERED: MORPHINE SULFATE 2 MG/ML CPJ (NOT FOR IM USE) IV PRN (09:30)
[2020-12-22 20:00] VITALS: BP 131/77
[2020-12-23] VITALS: BP 126/64
[2020-12-23 04:00] VITALS: BP 129/75
[2020-12-23 08:00] VITALS: BP 134/73
[2020-12-23] MEDS: METHYLPREDNISOLONE SOD SUCC 40 MG/ML VIAL IV SCH ×2 (08:33→21:02)
[2020-12-23] MEDS: ZINC SULFATE 220 MG ( 50 ) CAPSULE PO SCH (08:34)
[2020-12-23] MEDS: COLCHICINE 0.6MG TABLET PO SCH (08:34)
[2020-12-23] MEDS: DOCUSATE SODIUM SUGAR FREE 100MG/10ML UDC NG SCH ×2 (08:34→08:40)
[2020-12-23] MEDS: LACTOBACILLUS GG CAPSULE PO SCH (08:34)
[2020-12-23 12:00] VITALS: BP 100/87
[2020-12-23] MEDS: FAMOTIDINE 20MG TABLET PO SCH (12:23)
[2020-12-23] MEDS: ASCORBIC ACID 500 MG TABLET PO SCH ×2 (12:23→21:02)
[2020-12-23 16:00] VITALS: BP 99/82
[2020-12-23 20:00] VITALS: BP 98/74
[2020-12-23] MEDS: ENOXAPARIN 40MG/0.4ML SYR SUBCUT SCH (21:02)
[2020-12-24] VITALS: BP 103/78
[2020-12-24 04:00] VITALS: BP 131/65
[2020-12-24 08:00] VITALS: BP 135/66
[2020-12-24] MEDS: LACTOBACILLUS GG CAPSULE PO SCH (10:15)
[2020-12-24] MEDS: METHYLPREDNISOLONE SOD SUCC 40 MG/ML VIAL IV SCH ×2 (10:15→22:56)
[2020-12-24] MEDS: ZINC SULFATE 220 MG ( 50 ) CAPSULE PO SCH (10:15)
[2020-12-24] MEDS: ENOXAPARIN 40MG/0.4ML SYR SUBCUT SCH (10:16)
[2020-12-24 12:00] VITALS: BP 138/73
[2020-12-24] MEDS: COLCHICINE 0.6MG TABLET PO SCH (12:11)
[2020-12-24 16:00] VITALS: BP 147/71
[2020-12-24 20:00] VITALS: BP 148/83
[2020-12-24] MEDS: ASCORBIC ACID 500 MG TABLET PO SCH (22:57)
[2020-12-25] VITALS: BP 141/80
[2020-12-25 04:00] VITALS: BP 110/59
[2020-12-25 08:00] VITALS: BP 135/66
[2020-12-25] MEDS: COLCHICINE 0.6MG TABLET PO SCH (09:19)
[2020-12-25] MEDS: ZINC SULFATE 220 MG ( 50 ) CAPSULE PO SCH (09:19)
[2020-12-25] MEDS: METHYLPREDNISOLONE SOD SUCC 40 MG/ML VIAL IV SCH (09:19)
[2020-12-25] MEDS: LACTOBACILLUS GG CAPSULE PO SCH (09:19)
[2020-12-25] MEDS: ASCORBIC ACID 500 MG TABLET PO SCH ×2 (12:38→21:42)
[2020-12-25 13:00] VITALS: BP 157/76
[2020-12-25] MEDS: GABAPENTIN 300MG CAPSULE PO SCH ×2 (14:22→21:42)
[2020-12-25 16:41] VITALS: BP 135/70
[2020-12-25 20:00] VITALS: BP 126/60
[2020-12-25] MEDS: ENOXAPARIN 40MG/0.4ML SYR SUBCUT SCH (21:41)
[2020-12-26] VITALS: BP 120/51
[2020-12-26 04:00] VITALS: BP 104/51
[2020-12-26] MEDS: GABAPENTIN 300MG CAPSULE PO SCH ×3 (06:24→21:43)
[2020-12-26 07:58] VITALS: BP 126/66
[2020-12-26] MEDS ORDERED: LIDOCAINE HCL/PF 1% 2ML VIAL ONE (09:30)
[2020-12-26] MEDS: COLCHICINE 0.6MG TABLET PO SCH (09:59)
[2020-12-26] MEDS: PREDNISONE 20MG TABLET PO SCH (10:00)
[2020-12-26] MEDS: ASCORBIC ACID 500 MG TABLET PO SCH ×2 (10:00→21:49)
[2020-12-26] MEDS: ZINC SULFATE 220 MG ( 50 ) CAPSULE PO SCH (10:00)
[2020-12-26] MEDS: LACTOBACILLUS GG CAPSULE PO SCH (10:00)
[2020-12-26 12:01] LABS: BG BASE EXCESS 5.2 mmol/L (-2.0-2.0); BG CARBOXYHEMOGLOBIN 0.1 % (0.5-1.5); BG DEOXYHEMOGLOBIN 3.4 % (0.0-5.0); BG HCO3 ACT 29.5 mmol/L (22.0-26.0); BG METHEMOGLOBIN 0.3 % (0.0-1.5); BG OXYGEN SATURATION 96.6 % (92.0-98.5); BG OXYHEMOGLOBIN 96.2 % (94.0-97.0); BG PH 7.464 (7.350-7.450); BG PO2 85.6 mmHg (75.0-100.0); BG SAMPLE SITE RIGHT BRACHIAL; BG TOTAL HEMOGLOBIN 12.5 g/dL (12.0-18.0); BG VENT MODE NASAL CANNULA
[2020-12-26 12:18] VITALS: BP 122/69
[2020-12-26 16:00] VITALS: BP 123/75
[2020-12-26 18:02] LABS: BG BASE EXCESS 5.4 mmol/L (-2.0-2.0); BG CARBOXYHEMOGLOBIN 0.4 % (0.5-1.5); BG DEOXYHEMOGLOBIN 19.7 % (0.0-5.0); BG HCO3 ACT 29.9 mmol/L (22.0-26.0); BG METHEMOGLOBIN 0.2 % (0.0-1.5); BG OXYGEN SATURATION 80.2 % (92.0-98.5); BG OXYHEMOGLOBIN 79.7 % (94.0-97.0); BG PCO2 43.2 mmHg (35.0-45.0); BG PH 7.458 (7.350-7.450); BG PO2 41.3 mmHg (75.0-100.0); BG SAMPLE SITE RIGHT BRACHIAL; BG TOTAL HEMOGLOBIN 12.2 g/dL (12.0-18.0); BG VENT MODE ROOM AIR
[2020-12-26 20:00] VITALS: BP 112/63
[2020-12-26] MEDS: ENOXAPARIN 40MG/0.4ML SYR SUBCUT SCH (21:44)
[2020-12-27] VITALS: BP 108/52
[2020-12-27] MEDS: GABAPENTIN 300MG CAPSULE PO SCH ×3 (06:29→21:28)
[2020-12-27 06:56] LABS: FOLIC ACID (FOLATE) SERUM 17.3 ng/mL (>5.38)
[2020-12-27] MEDS: PREDNISONE 20MG TABLET PO SCH (09:03)
[2020-12-27] MEDS: LACTOBACILLUS GG CAPSULE PO SCH (09:03)
[2020-12-27] MEDS: ASCORBIC ACID 500 MG TABLET PO SCH (09:03)
[2020-12-27] MEDS: COLCHICINE 0.6MG TABLET PO SCH (09:03)
[2020-12-27] MEDS: ZINC SULFATE 220 MG ( 50 ) CAPSULE PO SCH (09:03)
[2020-12-27 17:29] VITALS: BP 94/73
[2020-12-27 20:00] VITALS: BP 113/53
[2020-12-27] MEDS: ENOXAPARIN 40MG/0.4ML SYR SUBCUT SCH (21:30)
[2020-12-28] VITALS (7 sets, daily range): BP systolic 97–130; BP diastolic 50–76
[2020-12-28 06:28] LABS: HEMATOCRIT 32.4 % (36.0-48.0); HEMOGLOBIN 10.1 g/dL (12.0-16.0); MEAN CORPUSCULAR HEMOGLOBIN 22.4 pg (28.0-32.0); MEAN CORPUSCULAR VOLUME 71.7 fL (81.0-99.0); PLATELET 248 x1000/uL (130-400); RED BLOOD CELL COUNT 4.51 mill/uL (4.2-5.4); RED CELL DISTRIBUTION WIDTH 15.4 % (11.6-14.6)
[2020-12-28] MEDS: GABAPENTIN 300MG CAPSULE PO SCH ×3 (06:32→20:50)
[2020-12-28 07:00] LABS: CHLORIDE 108 mEq/L (98-107)
[2020-12-28] MEDS: LACTOBACILLUS GG CAPSULE PO SCH (08:53)
[2020-12-28] MEDS: PREDNISONE 20MG TABLET PO SCH (08:53)
[2020-12-28] MEDS: COLCHICINE 0.6MG TABLET PO SCH (08:53)
[2020-12-28] MEDS: ENOXAPARIN 40MG/0.4ML SYR SUBCUT SCH (20:50)
[2020-12-29 04:00] VITALS: BP 133/67
[2020-12-29] MEDS: GABAPENTIN 300MG CAPSULE PO SCH ×3 (05:36→21:21)
[2020-12-29] MEDS: COLCHICINE 0.6MG TABLET PO SCH (08:16)
[2020-12-29] MEDS: PREDNISONE 20MG TABLET PO SCH (08:16)
[2020-12-29] MEDS: LACTOBACILLUS GG CAPSULE PO SCH (08:16)
[2020-12-29 08:19] VITALS: BP 110/77
[2020-12-29 20:00] VITALS: BP 97/55
[2020-12-29] MEDS: ENOXAPARIN 40MG/0.4ML SYR SUBCUT SCH (21:21)
[2020-12-30] VITALS: BP 112/65
[2020-12-30 04:00] VITALS: BP 113/50
[2020-12-30] MEDS: GABAPENTIN 300MG CAPSULE PO SCH ×3 (06:18→22:02)
[2020-12-30 08:00] VITALS: BP 125/62
[2020-12-30] MEDS: COLCHICINE 0.6MG TABLET PO SCH (09:13)
[2020-12-30] MEDS: LACTOBACILLUS GG CAPSULE PO SCH (09:13)
[2020-12-30] MEDS: PREDNISONE 20MG TABLET PO SCH (09:14)
[2020-12-30 20:00] VITALS: BP 105/41
[2020-12-30] MEDS: ENOXAPARIN 40MG/0.4ML SYR SUBCUT SCH (22:02)
[2020-12-31] VITALS: BP 136/49
[2020-12-31 04:00] VITALS: BP 110/65
[2020-12-31] MEDS: GABAPENTIN 300MG CAPSULE PO SCH ×3 (06:45→21:20)
[2020-12-31 08:01] VITALS: BP 123/64
[2020-12-31] MEDS: LACTOBACILLUS GG CAPSULE PO SCH (09:53)
[2020-12-31] MEDS: PREDNISONE 20MG TABLET PO SCH (09:53)
[2020-12-31] MEDS: COLCHICINE 0.6MG TABLET PO SCH (09:53)
[2020-12-31 14:11] VITALS: BP 152/100
[2020-12-31 20:00] VITALS: BP 116/61
[2020-12-31] MEDS: ENOXAPARIN 40MG/0.4ML SYR SUBCUT SCH (21:20)
[2021-01-01 04:00] VITALS: BP 138/80
[2021-01-01] MEDS: GABAPENTIN 300MG CAPSULE PO SCH ×3 (05:24→21:49)
[2021-01-01 08:03] VITALS: BP 159/75
[2021-01-01] MEDS: PREDNISONE 20MG TABLET PO SCH (08:52)
[2021-01-01] MEDS: LACTOBACILLUS GG CAPSULE PO SCH (08:52)
[2021-01-01] MEDS: COLCHICINE 0.6MG TABLET PO SCH (08:52)
[2021-01-01 12:00] VITALS: BP 120/65
[2021-01-01 16:00] VITALS: BP 133/69
[2021-01-01 17:06] LABS: 25-HYDROXY VITAMIN D3 35 ng/mL (.)
[2021-01-01 20:00] VITALS: BP 135/74
[2021-01-01] MEDS: ENOXAPARIN 40MG/0.4ML SYR SUBCUT SCH (21:49)
[2021-01-02] VITALS: BP 111/51
[2021-01-02 04:00] VITALS: BP 110/49
[2021-01-02] MEDS: GABAPENTIN 300MG CAPSULE PO SCH ×3 (05:52→21:34)
[2021-01-02 06:45] LABS: EOSINOPHILS % 0.4 % (0.0-5.0); HEMATOCRIT. 33.7 % (36.0-48.0); HEMOGLOBIN. 10.6 g/dL (12.0-16.0); LYMPHOCYTES % 30.4 % (20.0-50.0); MEAN CORPUSCULAR HEMOGLOBIN 22.6 pg (28.0-32.0); MEAN CORPUSCULAR VOLUME 71.9 fL (81.0-99.0); MONOCYTES % 4.8 % (2.0-8.0); NEUTROPHILS % 63.4 % (40.0-76.0); PLATELET 163 x1000/uL (130-400); RED BLOOD CELL COUNT 4.68 mill/uL (4.2-5.4); RED CELL DISTRIBUTION WIDTH 16.7 % (11.6-14.6)
[2021-01-02 07:25] LABS: CHLORIDE 107 mEq/L (98-107)
[2021-01-02 08:00] VITALS: BP 116/80
[2021-01-02] MEDS: PREDNISONE 20MG TABLET PO SCH (09:08)
[2021-01-02] MEDS: COLCHICINE 0.6MG TABLET PO SCH (09:08)
[2021-01-02] MEDS: LACTOBACILLUS GG CAPSULE PO SCH (09:08)
[2021-01-02 12:00] VITALS: BP 105/62
[2021-01-02] MEDS: ERGOCALCIFEROL 50000UNITS CAPSULE PO SCH (14:06)
[2021-01-02 15:50] VITALS: BP 119/70
[2021-01-02 20:00] VITALS: BP 102/41
[2021-01-02] MEDS: ENOXAPARIN 40MG/0.4ML SYR SUBCUT SCH (21:34)
[2021-01-03] VITALS: BP_SYST 100; BP_SYST 114; BP_DIAS 48; BP_DIAS 49
[2021-01-03 04:00] VITALS: BP_SYST 116; BP_SYST 120; BP_DIAS 52; BP_DIAS 68
[2021-01-03] MEDS: GABAPENTIN 300MG CAPSULE PO SCH ×3 (06:00→21:25)
[2021-01-03 08:00] VITALS: BP 113/61
[2021-01-03] MEDS: LACTOBACILLUS GG CAPSULE PO SCH (08:58)
[2021-01-03] MEDS: PREDNISONE 20MG TABLET PO SCH (08:58)
[2021-01-03] MEDS: COLCHICINE 0.6MG TABLET PO SCH (08:58)
[2021-01-03 12:00] VITALS: BP 135/69
[2021-01-03 16:00] VITALS: BP 121/59
[2021-01-03 20:00] VITALS: BP 113/59
[2021-01-03] MEDS: ENOXAPARIN 40MG/0.4ML SYR SUBCUT SCH (21:25)
[2021-01-04] MEDS: GABAPENTIN 300MG CAPSULE PO SCH ×3 (06:18→21:00)
[2021-01-04 08:00] VITALS: BP 137/61
[2021-01-04] MEDS: PREDNISONE 20MG TABLET PO SCH (08:52)
[2021-01-04] MEDS: COLCHICINE 0.6MG TABLET PO SCH (08:52)
[2021-01-04 12:00] VITALS: BP 148/74
[2021-01-04] MEDS ORDERED: LIDOCAINE HCL/PF 1% 2ML VIAL ONE (15:55)
[2021-01-04 16:00] VITALS: BP 119/66
[2021-01-04 16:24] LABS: BG BASE EXCESS 5.9 mmol/L (-2.0-2.0); BG CARBOXYHEMOGLOBIN 0.5 % (0.5-1.5); BG DEOXYHEMOGLOBIN 13.2 % (0.0-5.0); BG HCO3 ACT 30.7 mmol/L (22.0-26.0); BG METHEMOGLOBIN 0.3 % (0.0-1.5); BG OXYGEN SATURATION 86.7 % (92.0-98.5); BG PCO2 46.2 mmHg (35.0-45.0); BG PH 7.441 (7.350-7.450); BG PO2 49.6 mmHg (75.0-100.0); BG SAMPLE SITE RIGHT BRACHIAL; BG TOTAL HEMOGLOBIN 10.7 g/dL (12.0-18.0); BG VENT MODE ROOM AIR
[2021-01-04] MEDS ORDERED: FLUT1DIS3 INH (16:47)
[2021-01-04] MEDS ORDERED: ALBU18HF2 IH (16:47)
[2021-01-04] MEDS ORDERED: IPRATROPIUM/ALBUTEROL 0.5-3(2.5)MG/3ML NEB HHN PRN (17:00)
[2021-01-04 20:00] VITALS: BP 120/66
[2021-01-04] MEDS: ENOXAPARIN 40MG/0.4ML SYR SUBCUT SCH (20:48)
[2021-01-05] VITALS: BP 133/78
[2021-01-05 04:00] VITALS: BP 127/70
[2021-01-05] MEDS: GABAPENTIN 300MG CAPSULE PO SCH ×3 (05:48→21:19)
[2021-01-05 08:01] VITALS: BP 143/71
[2021-01-05] MEDS: COLCHICINE 0.6MG TABLET PO SCH (08:26)
[2021-01-05] MEDS: PREDNISONE 20MG TABLET PO SCH (08:26)
[2021-01-05 11:51] VITALS: BP 122/65
[2021-01-05 20:00] VITALS: BP 132/70
[2021-01-05] MEDS: ENOXAPARIN 40MG/0.4ML SYR SUBCUT SCH (21:22)
[2021-01-06] VITALS (9 sets, daily range): BP systolic 117–163; BP diastolic 48–94
[2021-01-06] MEDS: GABAPENTIN 300MG CAPSULE PO SCH ×3 (05:33→21:45)
[2021-01-06] MEDS: PREDNISONE 20MG TABLET PO SCH (08:12)
[2021-01-06] MEDS: COLCHICINE 0.6MG TABLET PO SCH (08:12)
[2021-01-06] MEDS: AMLODIPINE 10MG TABLET PO SCH (13:20)
[2021-01-06] MEDS: ENOXAPARIN 40MG/0.4ML SYR SUBCUT SCH (22:23)
[2021-01-07] VITALS: BP 124/70
[2021-01-07 04:00] VITALS: BP 130/64
[2021-01-07] MEDS: GABAPENTIN 300MG CAPSULE PO SCH ×3 (05:19→21:17)
[2021-01-07] MEDS: PREDNISONE 20MG TABLET PO SCH (08:09)
[2021-01-07] MEDS: COLCHICINE 0.6MG TABLET PO SCH (08:09)
[2021-01-07] MEDS: AMLODIPINE 10MG TABLET PO SCH (08:09)
[2021-01-07 08:25] VITALS: BP 137/77
[2021-01-07 12:00] VITALS: BP 125/66
[2021-01-07 16:00] VITALS: BP 129/63
[2021-01-07 20:00] VITALS: BP 128/76
[2021-01-07] MEDS: ENOXAPARIN 40MG/0.4ML SYR SUBCUT SCH (22:37)
[2021-01-08] VITALS: BP 134/50
[2021-01-08 04:00] VITALS: BP 144/72
[2021-01-08] MEDS: GABAPENTIN 300MG CAPSULE PO SCH ×3 (05:14→21:31)
[2021-01-08 08:00] VITALS: BP 144/77
[2021-01-08] MEDS: COLCHICINE 0.6MG TABLET PO SCH (08:19)
[2021-01-08] MEDS: AMLODIPINE 10MG TABLET PO SCH (08:22)
[2021-01-08] MEDS: PREDNISONE 20MG TABLET PO SCH (08:23)
[2021-01-08 12:00] VITALS: BP 138/70
[2021-01-08 16:00] VITALS: BP 129/69
[2021-01-08 20:00] VITALS: BP 106/44
[2021-01-08] MEDS: ENOXAPARIN 40MG/0.4ML SYR SUBCUT SCH (21:29)
[2021-01-09] MEDS: GABAPENTIN 300MG CAPSULE PO SCH ×3 (05:23→21:08)
[2021-01-09 08:01] VITALS: BP 148/75
[2021-01-09] MEDS: AMLODIPINE 10MG TABLET PO SCH (08:58)
[2021-01-09] MEDS: PREDNISONE 20MG TABLET PO SCH (08:58)
[2021-01-09] MEDS: COLCHICINE 0.6MG TABLET PO SCH (08:58)
[2021-01-09] MEDS: ERGOCALCIFEROL 50000UNITS CAPSULE PO SCH (10:50)
[2021-01-09 11:42] VITALS: BP 130/64
[2021-01-09 16:00] VITALS: BP 130/73
[2021-01-09 20:00] VITALS: BP 100/70
[2021-01-09] MEDS: ENOXAPARIN 40MG/0.4ML SYR SUBCUT SCH (21:08)
[2021-01-10] VITALS: BP 112/57
[2021-01-10 04:00] VITALS: BP 133/82
[2021-01-10] MEDS: GABAPENTIN 300MG CAPSULE PO SCH ×3 (05:07→20:39)
[2021-01-10 06:40] LABS: CHLORIDE 104 mEq/L (98-107)
[2021-01-10 06:41] LABS: BASOPHILS % 0.6 % (0.0-2.0); EOSINOPHILS % 0.7 % (0.0-5.0); HEMATOCRIT. 34.9 % (36.0-48.0); HEMOGLOBIN. 10.7 g/dL (12.0-16.0); LYMPHOCYTES % 41.6 % (20.0-50.0); MEAN CORPUSCULAR HEMOGLOBIN 21.9 pg (28.0-32.0); MEAN CORPUSCULAR VOLUME 71.8 fL (81.0-99.0); MEAN PLATELET VOLUME 9.1 fl (7.4-10.4); MONOCYTES % 5.9 % (2.0-8.0); NEUTROPHILS % 51.2 % (40.0-76.0); PLATELET 144 x1000/uL (130-400); RED BLOOD CELL COUNT 4.86 mill/uL (4.2-5.4); RED CELL DISTRIBUTION WIDTH 18.4 % (11.6-14.6)
[2021-01-10] MEDS: AMLODIPINE 10MG TABLET PO SCH (08:34)
[2021-01-10] MEDS: PREDNISONE 20MG TABLET PO SCH (08:34)
[2021-01-10] MEDS: COLCHICINE 0.6MG TABLET PO SCH (08:34)
[2021-01-10 08:45] VITALS: BP 131/79
[2021-01-10 18:55] LABS: BG CARBOXYHEMOGLOBIN 0.2 % (0.5-1.5); BG DEOXYHEMOGLOBIN 7.6 % (0.0-5.0); BG FRACTION INSPIRED OXYGEN 21; BG HCO3 ACT 29.3 mmol/L (22.0-26.0); BG METHEMOGLOBIN 0.3 % (0.0-1.5); BG OXYGEN SATURATION 92.4 % (92.0-98.5); BG OXYHEMOGLOBIN 91.9 % (94.0-97.0); BG PH 7.412 (7.350-7.450); BG PO2 61.2 mmHg (75.0-100.0); BG SAMPLE SITE RIGHT RADIAL; BG TOTAL HEMOGLOBIN 11.8 g/dL (12.0-18.0); BG VENT MODE ROOM AIR
[2021-01-10 20:00] VITALS: BP 104/42
[2021-01-10] MEDS: ENOXAPARIN 40MG/0.4ML SYR SUBCUT SCH (20:39)
[2021-01-11] VITALS: BP 119/61
[2021-01-11 04:00] VITALS: BP 133/67
[2021-01-11] MEDS: GABAPENTIN 300MG CAPSULE PO SCH ×3 (05:23→21:46)
[2021-01-11 08:00] VITALS: BP 125/68
[2021-01-11] MEDS: AMLODIPINE 10MG TABLET PO SCH (08:54)
[2021-01-11] MEDS: PREDNISONE 20MG TABLET PO SCH (08:54)
[2021-01-11] MEDS: COLCHICINE 0.6MG TABLET PO SCH (08:54)
[2021-01-11 12:00] VITALS: BP 137/77
[2021-01-11 20:00] VITALS: BP 130/67
[2021-01-11] MEDS: ENOXAPARIN 40MG/0.4ML SYR SUBCUT SCH (21:46)
[2021-01-12] VITALS (7 sets, daily range): BP systolic 124–147; BP diastolic 56–69
[2021-01-12] MEDS: GABAPENTIN 300MG CAPSULE PO SCH ×2 (05:23→13:00)
[2021-01-12] MEDS: AMLODIPINE 10MG TABLET PO SCH (08:55)
[2021-01-12] MEDS: COLCHICINE 0.6MG TABLET PO SCH (08:55)
[2021-01-12] MEDS ORDERED: PREDNISONE 20MG TABLET PO SCH (09:00)
== END 2021-01-12 19:00 | disposition home or self-care (01) | DRG 871 ==
LOC: ER 09:28 → MICUSO 20:15 → 7WST 11-24 07:21 → 6WST 11-27 18:55 → 8WST 11-28 23:20 → 7EST 12-20 14:01 → 4WST 12-25 12:45
PROVIDERS: ADMIT Internal Medicine; ATTEND Internal Medicine
PROC: 05HY33Z Insertion of Infusion Device into Upper Vein, Percutaneous Approach (ICD-10-PCS; principal; 2020-12-21)
PROC: B54MZZA Ultrasonography of Right Upper Extremity Veins, Guidance (ICD-10-PCS; 2020-12-21)
DX: A41.89 Other specified sepsis (principal); U07.1 COVID-19; J96.01 Acute respiratory failure with hypoxia; J12.82 Pneumonia due to coronavirus disease 2019; E44.1 Mild protein-calorie malnutrition; E87.1 Hypo-osmolality and hyponatremia; G62.81 Critical illness polyneuropathy; I10 Essential (primary) hypertension; B97.89 Other viral agents as the cause of diseases classified elsewhere; D64.9 Anemia, unspecified; E73.9 Lactose intolerance, unspecified; R32 Unspecified urinary incontinence; R19.7 Diarrhea, unspecified; R73.9 Hyperglycemia, unspecified; R26.9 Unspecified abnormalities of gait and mobility; R53.81 Other malaise; G62.9 Polyneuropathy, unspecified; R15.9 Full incontinence of feces; E55.9 Vitamin D deficiency, unspecified; Z82.49 Family history of ischemic heart disease and other diseases of the circulatory system; Z79.899 Other long term (current) drug therapy; Z68.33 Body mass index [BMI] 33.0-33.9, adult
CPT/HCPCS: 36415; 36600; 71045; 71275; 76937; 80048; 80053; 82306; 82375; 82550; 82607; 82728; 82746; 82805; 82962; 83605; 83615; 83880; 84145; 84443; 84484; 85025; 85027; 85379; 86140; 87426; 87804; 92523; 92610; 93005; 94618; 97110; 97116; 97162; 97166; 97530; 97535; 99285; C1725; C1893; C9803; J0456; J0692; J0696; J1100; J1650; J1940; J2270; J2920; J2930; J3490; J7040; J7060; J7070; J7512; U0003